=== PATIENT | female | born 1995 | race Caucasian/White ===

== ENCOUNTER 2019-04-12 14:27 | Outpatient (RCR) | payer OTHER, SELFPAY ==
[2019-04-13] MEDS: RHO(D) IMMUNE GLOBULIN 300 MCG SYRINGE IM (12:40)
== END 2019-07-11 23:59 | disposition home or self-care (01) ==
LOC: ANHLAB 14:27
PROVIDERS: PCP Family Medicine; Visit Provider Obstetrics & Gynecology Gynecology
DX: Z29.13 Encounter for prophylactic Rho(D) immune globulin (principal); O36.0930 Maternal care for other rhesus isoimmunization, third trimester, not applicable or unspecified; Z3A.28 28 weeks gestation of pregnancy
CPT/HCPCS: 36415; 36430; 90384; 96372; J2790

== ENCOUNTER 2019-06-24 10:03 | Observation (INO) | payer OTHER, SELFPAY ==
[2019-06-24] VITALS (11 sets, daily range): BP systolic 105–125; BP diastolic 60–88; PULSE 85–95; RESP 18; TEMP 36.8–37.2; BMI 34.2
--- NOTE | 2019-06-24 10:34 | OBADM ---
This patient, Meenakshi Adame, admitted to the OB room 116 at 1003 for observation for RUQ pain. Patient/family oriented to hospital policies and general routines including ID bracelet, bed and alarms, visiting hours, pain management, procedures, bathroom and other care routines, personal items, smoking policy, room service/diet, and visiting hours. Patient/Family are encouraged to report perceived risks to care and to ask questions if they do not understand what they are told or what they should do.
[2019-06-24 11:53] LABS: Basophils Percent Auto 0.5 % (0.2-1.2); Eosinophils Absolute Auto 0.2 K/mm3 (0-0.3); Eosinophils Percent Auto 1.8 % (0-4.4); Hematocrit 39.9 % (37.0-47.0); Hemoglobin 13.2 g/dL (12.0-15.0); Immature Granulocyte Absolute 0.06 K/mm3 (0.00-0.031); Immature Granulocyte Percent A 0.7 % (0-0.5); Lymphocytes Absolute Auto 1.47 K/mm3 (0.9-3.2); Mean Corpuscular HGB Conc 33.1 g/dl (32-36); Mean Corpuscular Volume 90.7 fl (80-100); Mean Platelet Volume 10.8 fl (7.4-10.4); Monocytes Absolute Auto 0.8 K/mm3 (0.1-0.6); Monocytes Percent Auto 9.7 % (2.6-8.5); Neutrophils Absolute Auto 6.1 K/mm3 (1.3-6.7); Neutrophils Percent Auto 70.3 % (45.5-73.1); Platelet Count Result 160 k/mm3 (150-375); White Blood Count 8.7 K/mm3 (4.5-10.0)
[2019-06-24 11:58] LABS: Add Urine Microscopic? YES; Appearance Urine Cloudy (Clear); Bacteria Urine 1+ /hpf; Bilirubin Urine Negative (Negative); Blood Urine Negative (Negative); Calcium Oxalate Crystals Urine Present /hpf; Color Urine Amber (Yellow); Glucose Urine UA Negative (Negative); Ketones Urine Negative (Negative); Leukocyte Esterase Ur Negative LEU/UL (Negative); Mucus Urine Heavy /lpf; Nitrate Urine Negative (Negative); Protein Urine 2+ mg/dL (Negative); Specific Grav Ur 1.028 (1.001-1.035); Squamous Epithelial Cell Urine Many /hpf (Few); Urobilinogen Urine Negative mg/dL (<2.0); WBC Urine 0-3 /hpf
[2019-06-24 12:06] LABS: Alanine Aminotransferase 12 U/L (4-35); Albumin Level 3.5 g/dL (3.5-5.1); Alkaline Phosphatase 149 U/L (38-126); Aspartate Amino Transferase 18 U/L (14-36); Bilirubin,Total 0.4 mg/dL (0.2-1.3); Blood Urea Nitrogen 9 mg/dL (7-17); Calcium 9.1 mg/dL (8.4-10.2); Carbon Dioxide 21 mmol/L (22-30); Chloride 102 mmol/L (98-107); Estimated CRCL calculation 147 ml/min; Estimated Glomerular Filt Rate > 60; Glucose 72 mg/dL (65-105); Sodium 133 mmol/L (137-145)
[2019-06-24 12:20] LABS: Creatinine Urine 304.9 mg/dL; Total Protein Urine Random 21 mg/dL
--- NOTE | 2019-07-01 10:19 | P.PNOB_ITS ---
OB - Triage/Final Diagnosis Visit Information Comments/Additional reasons for admission: right upper quadrant pain Evaluation Laboratory results: Laboratory Tests 06/24/19 06/24/19 06/24/19 11:42 11:42 11:42 WBC 8.7 RBC 4.40 Hgb 13.2 Hct 39.9 MCV 90.7 MCH 30.0 MCHC 33.1 RDW 13.0 Plt Count 160 MPV 10.8 H Immature Gran % (Auto) 0.7 H Neut % (Auto) 70.3 Lymph % (Auto) 17.0 L [place] % (Auto) 9.7 H Eos % (Auto) 1.8 Baso % (Auto) 0.5 Lymph # (Auto) 1.47 [place] # (Auto) 0.8 H Eos # (Auto) 0.2 Baso # (Auto) 0.0 Abs Immat Gran (auto) 0.06 H Absolute Neuts (auto) 6.1 Absolute Nucleated RBC 0.0 Nucleated RBC % 0.0 Sodium 133 L Potassium 4.0 Chloride 102 Carbon Dioxide 21 L BUN 9 Creatinine 0.50 L Estim Creat Clear Calc 147 Estimated GFR > 60 Glucose 72 Uric Acid 5.0 Calcium 9.1 Total Bilirubin 0.4 AST 18 ALT 12 Alkaline Phosphatase 149 H Total Protein 7.0 Albumin 3.5 Urine Color Urine Appearance Urine pH Ur Specific [place] Urine Protein Urine Glucose (UA) Urine Ketones Ur Blood (Man) Urine Nitrate Urine Bilirubin Urine Urobilinogen Leukocyte Esterase Rfl Urine RBC Urine WBC Ur Squamous Epith Cells Calcium Oxalate Crystal Urine Bacteria Urine Mucus U Random Total Protein 21 Urine Creatinine 304.9 06/24/19 11:42 WBC RBC Hgb Hct MCV MCH MCHC RDW Plt Count MPV Immature Gran % (Auto) Neut % (Auto) Lymph % (Auto) [place] % (Auto) Eos % (Auto) Baso % (Auto) Lymph # (Auto) [place] # (Auto) Eos # (Auto) Baso # (Auto) Abs Immat Gran (auto) Absolute Neuts (auto) Absolute Nucleated RBC Nucleated RBC % Sodium Potassium Chloride Carbon Dioxide BUN Creatinine Estim Creat Clear Calc Estimated GFR Glucose Uric Acid Calcium Total Bilirubin AST ALT Alkaline Phosphatase Total Protein Albumin Urine Color [place] Urine Appearance Cloudy H Urine pH 6.0 Ur Specific [place] 1.028 Urine Protein 2+ H Urine Glucose (UA) Negative Urine Ketones Negative Ur Blood (Man) Negative Urine Nitrate Negative Urine Bilirubin Negative Urine Urobilinogen Negative Leukocyte Esterase Rfl Negative Urine RBC 3-5 H Urine WBC 0-3 Ur Squamous Epith Cells Many H Calcium Oxalate Crystal Present Urine Bacteria 1+ H Urine Mucus Heavy H U Random Total Protein Urine Creatinine
== END 2019-06-24 13:56 | disposition home or self-care (01) ==
PROVIDERS: Admitting Provider Obstetrics & Gynecology Gynecology; PCP Family Medicine; Visit Provider Obstetrics & Gynecology Gynecology
DX: O26.893 Other specified pregnancy related conditions, third trimester (principal); R10.11 Right upper quadrant pain; Z3A.38 38 weeks gestation of pregnancy
CPT/HCPCS: 36415; 80053; 81001; 82570; 84156; 84550; 85025; G0378; G0379

== ENCOUNTER 2019-06-27 05:19 | Inpatient (IN) | payer OTHER, SELFPAY ==
[2019-06-27] VITALS (52 sets, daily range): BP systolic 103–146; BP diastolic 59–113; PULSE 70–125; RESP 12–20; TEMP 36.1–37.5; O2SAT 96–100; BMI 34.9
[2019-06-27] MEDS: LACTATED RINGERS 1,000 ML 125 ML IV CONT ×2 (06:19→07:04)
--- NOTE | 2019-06-27 06:23 | LDADM ---
This patient, Meenakshi Adame, was admitted to Labor/Delivery/Recovery 120 on 06/27/19 at 05:19. Plans for labor, pain management and were discussed with patient. Patient/family oriented to hospital policies and general routines including ID bracelet, bed and alarms, visiting hours, pain management, procedures, bathroom and other care routines, personal items, smoking policy, room service/diet and guest tray routines, security routines, and visiting hours. Patient/Family are encouraged to report perceived risks to care and to ask questions if they do not understand what they are told or what they should do. See OBIX for further documentation.
--- NOTE | 2019-06-27 06:50 | WPDANESEPPF ---
Anes - Initial Pre Proc Eval Procedure: Operation Date: 06/27/19 07:30 Proposed Procedures p Repeat Section - Leeanna Walton MD Date/Time: 06/27/19 06:50 Surgeon: Leeanna Walton MD Pre Op Diagnosis: section Patient Data Age: 23 Gender: F Height: 5 ft 2 in Weight: 86.5 kg Last Vital Signs Pulse 74 06/27/19 06:28 BP 124/78 06/27/19 06:28 Allergies Allergy/AdvReac Type Severity Reaction Status Date / Time No Known Allergies Allergy Unverified 10/05/16 18:34 Home Medications Medication Instructions Recorded Confirmed Type 1 tablet PO DAILY 06/04/19 06/24/19 History ergocalciferol (vitamin D2) 4,000 unit PO DAILY 06/04/19 06/24/19 History metformin 500 mg PO HS 06/04/19 06/24/19 History valacyclovir [Valtrex] 500 mg PO DAILY 06/24/19 06/24/19 History Patient hx anesthesia problems: other (panic attack after delivery) Family hx anesthesia problems: none PMFSH Past Medical History Medical History (Updated 06/27/19 @ 06:51 by Santos Merchant MD) HSV (herpes simplex virus) infection PCOS (polycystic ovarian syndrome) Family History Family History Father Blood clot in vein Son Epilepsy Social History Social History Smoking status: Former smoker Second hand tobacco smoke exposure: Yes Smoking end date: 06/01/15 Alcohol intake: current Substance use: current Gender identity (if verbalized by the patient): Female Spiritual care concerns: No Anes - Eval Final PreProcedure Day of Procedure 06/27/19 06:50 Patient weight: obese Heart: regular rate and rhythm Lungs: clear to auscultation Airway: Mallampati scale class II Neurological: alert and oriented Last oral intake: >/= 8 hours ASA classification: III Emergent: no Anesthetic plan: proceed Anesthesia type and monitoring: regional spinal and standard monitoring Informed Consent: The patient's anesthetic plan and its attendant risks and benefits were discussed with the patient/family/POA. Questions were solicited and answers provided to the satisfaction of the patient/family/POA.
--- NOTE | 2019-06-27 07:14 | PM.IMHP ---
H&P: HPI History of Present Illness Chief complaint: section Narrative: Meenakshi Adame is a 23 year old female A1 at 39 wks here for repeat csection. Uterus is known to be heart shaped. has been uncomplicated. labs A-; rubella immune; RPR-; Hep BSAg -; Hiv -; GBS - PMFSH Past Medical History Medical History (Updated 06/27/19 @ 07:17 by Leeanna Walton MD) HSV (herpes simplex virus) infection PCOS (polycystic ovarian syndrome) Surgical History Surgical History (Updated 06/27/19 @ 07:17 by Leeanna Walton MD) History of Family History Family History (Updated 06/27/19 @ 07:16 by Leeanna Walton MD) Father Blood clot in vein Son Epilepsy Sibling Club foot Social History Social History Smoking status: Former smoker Second hand tobacco smoke exposure: Yes Smoking end date: 06/01/15 Alcohol intake: current Substance use: current Gender identity (if verbalized by the patient): Female Spiritual care concerns: No Meds Home Medications and Allergies Home Medications Medication Instructions Recorded Confirmed Type 1 tablet PO DAILY 06/04/19 06/27/19 History ergocalciferol (vitamin D2) 4,000 unit PO DAILY 06/04/19 06/27/19 History metformin 500 mg PO HS 06/04/19 06/27/19 History valacyclovir [Valtrex] 500 mg PO DAILY 06/24/19 06/27/19 History Allergies Allergy/AdvReac Type Severity Reaction Status Date / Time No Known Allergies Allergy Unverified 10/05/16 18:34 Vital Signs Vital Signs - 24 hr 06/27/19 06:28 Pulse Rate 74 Blood Pressure 124/78 Exam Const: General: healthy appearing and alert Orientation/consciousness: patient oriented x3 Resp: Effort & Inspection: normal respiratory effort Auscultation: clear to auscultation bilaterally Cardio: Rate: regular rate Rhythm: regular rhythm GI: GI Palp: Yes Soft to palpation, No Tenderness to palpation present (GI) and No Palpable mass present Percussion: Yes other (fundus 37 cm) : External Female Exam: normal external appearance Speculum Exam - Vagina: normal appearance of the vagina and normal vaginal discharge Speculum Exam - Cervix: normal appearance of the cervix Bimanual exam- vagina & uterus: uterine size normal and consistency normal Bimanual Exam- Adnexa, other: normal adnexae and No adnexal tenderness Neuro: General: patient oriented x3 Assessment and Plan Assessment and plan (1) 39 weeks gestation of : Code(s): Z3A.39 - 39 weeks gestation of Status: Acute Assessment and Plan: plan repeat LTCS (2) History of : Code(s): Z98.891 - History of uterine scar from previous surgery Status: Acute
[2019-06-27] MEDS: ceFAZolin 2 GM/D5W 50 ML 2 GM/50 ML BAG IVPB (07:30)
--- NOTE | 2019-06-27 08:13 | PM.OP ---
Procedure Note - Brief Procedure Note - Brief Date of procedure: 06/27/19 Pre-op diagnosis: section IUP 39 wks Prior csection Post-op diagnosis: same Procedure performed: repeat LTCS Anesthesia: spinal Surgeon: Leeanna Walton MD Estimated blood loss (mL): 210 Drains: Yes (van) Packing: No Pathology: none sent Complications: No immediate complications Condition: stable Disposition: PACU Findings: female infant with 9/9 Apgars weighing 6#1oz; normal appearing tubes and ovaries; uterus heart shaped
--- NOTE | 2019-06-27 08:15 | PM.OBDSVD ---
DS: Diagnosis Admitting Diagnosis Admitting Diagnosis: 39 weeks gestation of Discharge Diagnosis (1) History of : Code(s): Z98.891 - History of uterine scar from previous surgery Status: Acute (2) 39 weeks gestation of : Code(s): Z3A.39 - 39 weeks gestation of Status: Acute (3) S/P : Onset Date: ~06/27/19 Code(s): Z98.891 - History of uterine scar from previous surgery Status: Acute OB - DS: Summary OB Procedures : NST and Ultrasound OB Procedures Intrapartum: OB Procedures: : None Peripartum Data Procedures: Procedures Operation Date: 06/27/19 07:30 <No data on this case meets the specified criteria> Time Spent with Patient Time attestation: Total time spent providing and/or coordinating discharge services: Discharge Plan Discharge Attending physician on discharge: Leeanna Walton Discharging Clinician: Leeanna Walton Anticipated Discharge Date/Time: 06/30/19 08:16 Patient Disposition: Home, Self-Care Activity: may drive after 2 weeks and pelvic rest Diet: regular Wound Care Instructions: incision open to air Patient Instructions: Antibiotic Form Stand Alone Forms: General Discharge Information Follow-up/Referrals: Leeanna Walton MD [Physician] - Discharge Medications: New hydrocodone-acetaminophen 5-325 mg Tablet 1 tab PO Q3H PRN (Reason: Moderate Pain (4-6)) Qty: 0 RF: 0 Continued metformin 500 mg Tablet 500 mg PO HS RF: 0 ergocalciferol (vitamin D2) 4,000 unit PO DAILY RF: 0 Discontinued 28-800 mg-mcg Tablet 1 tablet PO DAILY RF: 0 valacyclovir [Valtrex] 500 mg Tablet 500 mg PO DAILY RF: 0 Date of admission: 06/27/19 05:19 Primary Care Provider: UNKNOWN,DOCTOR Admitting Provider: Leeanna Walton Attending physician on admission: Leeanna Walton Condition: Stable Health Concerns: Plan condoms until Mirena placed
[2019-06-27] MEDS: KETOROLAC 30 MG/ML VIAL (*BKC) IV PUSH (09:43)
--- NOTE | 2019-06-27 10:33 | PC.NURSE ---
Patient transferred to post room #283 per stretcher from labor and delivery. Support person present. Oriented to unit, room, information board, rooming in, admission packet and security measures. Patient verbalizes understanding.
--- NOTE | 2019-06-27 11:20 | PC.NURSE ---
Consulted with patient, mother reports infant eagerly fed for first feeding. Reviewed feeding cues, frequencies, duration of feedings, feeding elimination flow sheet, and signs of adequate intake. Demonstrated stimulation techniques to wake infant for feeding. Assisted with infant to breast. Reviewed positioning/alignment in cross cradle, holding breast in U hold and guided asymmetrical latch on. Discussed rational for each. was sleepy and made to effort to latch. Advised to skin to skin and attempt again in 30-45 min.
--- NOTE | 2019-06-27 11:49 | OP_ITS ---
DATE OF PROCEDURE: 06/27/2019 PREOPERATIVE DIAGNOSES: Intrauterine at 39 weeks, previous section. POSTOPERATIVE DIAGNOSES: Intrauterine at 39 weeks, previous section. PROCEDURE: Repeat low-transverse section. ANESTHESIA: Spinal. FINDINGS: 6-pound 1-ounce female, Apgars of 9 at 1 minute, 9 at 5 minutes. Normal-appearing tubes and ovaries. Uterus is heart shaped. ESTIMATED BLOOD LOSS: 210 mL. PATHOLOGY: None. DESCRIPTION OF PROCEDURE: The patient was taken to the operating room, placed under anesthesia in the dorsal supine position with a leftward tilt. Once anesthesia was deemed adequate, she was prepped and draped in the usual sterile fashion. A Pfannenstiel skin incision was made with a scalpel and carried down to the underlying layer of fascia. Fascia was nicked in the midline and extended laterally using Wylie scissors. [facility] was used to tent the fascia, which was then dissected off using sharp dissection. The rectus muscles were in the midline. The peritoneum was tented and entered with Metzenbaums. The incision was extended with blunt traction. The bladder blade was placed. The vesicouterine peritoneum was tented, entered with Metzenbaums, extended laterally. The bladder flap was created digitally. The bladder blade was replaced. The lower uterine segment was incised in a transverse fashion with a scalpel and extended laterally using blunt traction. The infant's head was brought up into the incision and delivered while the pharmacy technician assistant applied fundal pressure. The remainder of the was delivered. The cord was clamped and cut and the handed to the waiting OB nurse. The placenta was removed manually due to cord avulsion. The uterus was cleared of all clots and debris and exteriorized. The uterine incision was closed using 0 Monocryl in a running locked fashion. Same suture was used to imbricate. Good hemostasis was noted. The cul-de-sac was irrigated. The uterus was returned to the abdomen. The gutters were irrigated. The incision was again inspected and noted to be hemostatic. The fascia was closed using 0 Vicryl in a running fashion. Subcutaneous tissues were irrigated and made hemostatic using Bovie cautery. Skin was closed using 4-0 Vicryl in a subcuticular fashion. Dermaflex was placed over the incision. Sponge, instrument, needle counts were correct per the OR staff. The patient was given Ancef prior to incision. D I MT: Leydi
--- NOTE | 2019-06-27 12:10 | PC.NURSE ---
Reviewed feeding cues, frequencies, duration of feedings, feeding elimination flow sheet, and signs of adequate intake. Demonstrated stimulation techniques to wake infant for feeding. Assisted with infant to breast. Reviewed positioning/alignment in cross cradle, holding breast in U hold and guided asymmetrical latch on. Discussed rational for each. was sleepy and made to effort to latch. Advised to skin to skin and attempt again in 30-45 min.
--- NOTE | 2019-06-27 13:35 | PC.NURSE ---
Assisted with to breast. Reviewed positioning/alignment, holding breast and asymmetrical latch on. was able to latch correctly. Infant nursed eagerly, with steady draws and frequent swallowing noted. Reviewed signs of a correct latch, effective nursing and suck swallow ratio. Infant was able to maintain latch without discomfort to mother. Nipple care reviewed. Instructed mother to call out for RN assistance if she is unable to latch for feeding or she has discomfort with nursing. Instructed feeding should be initiated three hours from start of last feeding or if feeding cues are noted before. Mother voiced understanding of information shared.
[2019-06-27] MEDS: DEXTROSE 5%/0.45% SOD CHL 1,000 ML 125 ML IV CONT (13:40)
[2019-06-27] MEDS: IBUPROFEN 600 MG TABLET PO ×2 (17:20→23:11)
[2019-06-27] MEDS: DOCUSATE SODIUM 100 MG CAPSULE PO (17:21)
[2019-06-27] MEDS: LANOLIN (LANSINOH) 7.5 GM CREAM 1 APPLIC TOPICAL (19:30)
[2019-06-28 04:00] VITALS: BP 123/74; PULSE 93; RESP 18; TEMP 36.8; O2SAT 99
[2019-06-28 04:56] LABS: Basophils Percent Auto 0.4 % (0.2-1.2); Eosinophils Absolute Auto 0.2 K/mm3 (0-0.3); Eosinophils Percent Auto 1.8 % (0-4.4); Hematocrit 37.6 % (37.0-47.0); Hemoglobin 12.5 g/dL (12.0-15.0); Immature Granulocyte Absolute 0.08 K/mm3 (0.00-0.031); Immature Granulocyte Percent A 0.7 % (0-0.5); Immature Platelet Fraction Pct 4.5 % (0.9-11.2); Lymphocytes Absolute Auto 1.89 K/mm3 (0.9-3.2); Lymphocytes Percent Auto 17.3 % (18.3-44.2); Mean Corpuscular HGB Conc 33.2 g/dl (32-36); Mean Corpuscular Hemoglobin 30.2 pg (26-34); Mean Corpuscular Volume 90.8 fl (80-100); Mean Platelet Volume 10.6 fl (7.4-10.4); Monocytes Absolute Auto 1.1 K/mm3 (0.1-0.6); Monocytes Percent Auto 10.3 % (2.6-8.5); Neutrophils Absolute Auto 7.6 K/mm3 (1.3-6.7); Neutrophils Percent Auto 69.5 % (45.5-73.1); Platelet Count Result 145 k/mm3 (150-375); Red Blood Count 4.14 M/mm3 (4.2-5.4); White Blood Count 10.9 K/mm3 (4.5-10.0)
[2019-06-28] MEDS: IBUPROFEN 600 MG TABLET PO ×4 (05:18→23:13)
[2019-06-28 07:50] VITALS: BP 111/69; PULSE 89; RESP 18; TEMP 36.9; O2SAT 100
--- NOTE | 2019-06-28 07:53 | PM.OBPNVD ---
OB - PN: Subj Subjective Date/time seen: 06/28/19 07:53 Patient comments: no complaints and pain well controlled baby status: doing well OB - PN: Obj Data Labs CBC & Chem 7: 06/28/19 04:25 Labs: Laboratory Results - last 24 hr 06/28/19 04:25 WBC 10.9 H RBC 4.14 L Hgb 12.5 Hct 37.6 MCV 90.8 MCH 30.2 MCHC 33.2 RDW 13.0 Plt Count 145 L MPV 10.6 H Immature Gran % (Auto) 0.7 H Neut % (Auto) 69.5 Lymph % (Auto) 17.3 L [place] % (Auto) 10.3 H Eos % (Auto) 1.8 Baso % (Auto) 0.4 Lymph # (Auto) 1.89 [place] # (Auto) 1.1 H Eos # (Auto) 0.2 Baso # (Auto) 0.0 Abs Immat Gran (auto) 0.08 H Absolute Neuts (auto) 7.6 H Absolute Nucleated RBC 0.0 Nucleated RBC % 0.0 % Immature Plt Fraction 4.5 OB - PN A/P Plan day: 1 Plan: routine care Time Spent With Patient Time: Total time spent is greater than 50% in coordination of care (as documented) at patient's floor/unit and/or counseling patient: Time with patient: less than 15 minutes Exam Narrative: Exam Narrative: inc c/d/i : Bimanual exam- vagina & uterus: other (Uterus firm, nt @U)
[2019-06-28] MEDS: DOCUSATE SODIUM 100 MG CAPSULE PO ×2 (07:54→17:12)
--- NOTE | 2019-06-28 09:31 | WPDANLDPN2 ---
Anes-Prog Note L&D Date/Time: 06/28/19 09:31 Comfortable throughout: section Neuraxial method: spinal Epidural/Spinal procedure site: clean & non-tender Neuro status: Neuro function grossly intact. Cardiovascular status: normal Respiratory status: normal Airway patency: baseline Mental status: baseline Post-Op hydration status: normal Vital Signs: Last Vital Signs Temp 36.9 C 06/28/19 07:50 Pulse 89 06/28/19 07:50 Resp 18 06/28/19 07:50 BP 111/69 06/28/19 07:50 Pulse Ox 100 06/28/19 07:50 I/O: Intake & Output 06/27/19 06/28/19 06/28/19 23:59 07:59 15:59 Intake Total 2360 300 Output Total 2250 550 Balance 110 -250 Post-procedural complaints: none Patient feedback: Patient satisfied with anesthetic care.
--- NOTE | 2019-06-28 09:32 | WPDANLDNPN2 ---
Anes-Prog Note L&D-Neuraxial Date/Time: 06/28/19 09:32 Neuraxial medications: intrathecal PF morphine Opiod-related complaints: none Patient feedback: Patient satisfied with post-operative pain management.
[2019-06-28 11:50] VITALS: BP 96/63; PULSE 80
[2019-06-28] MEDS: RHO(D) IMMUNE GLOBULIN 300 MCG SYRINGE IM (13:43)
[2019-06-28 20:15] VITALS: PULSE 95; RESP 18; TEMP 36.9; O2SAT 100; O2SAT 97
[2019-06-29] MEDS: IBUPROFEN 600 MG TABLET PO ×3 (05:50→17:37)
--- NOTE | 2019-06-29 07:00 | PC.NURSE ---
PT introductions made and plan of care discussed per post op c section, pain management, breast feeding, daily care activities. PT verbalized understanding of such care.
[2019-06-29] MEDS: DOCUSATE SODIUM 100 MG CAPSULE PO ×2 (07:10→17:37)
[2019-06-29] MEDS: MULTIVIT/MIN/PREN/FOL AC/IRON TABLET 1 TAB PO (07:10)
[2019-06-29] MEDS: SIMETHICONE 80 MG TAB.CHEW PO ×4 (07:10→17:37)
[2019-06-29 07:59] VITALS: BP 107/69; PULSE 85; RESP 18; TEMP 36.5; O2SAT 98
[2019-06-29 10:15] VITALS: PULSE 85; RESP 18; O2SAT 98
--- NOTE | 2019-06-29 10:48 | PC.NURSE ---
R On 06/29/19, the student, [ SN Arcadio], provided care and completed [facility] [employer] documentation on this patient. I have reviewed the student's documentation and agree with the findings.
--- NOTE | 2019-06-29 11:41 | PM.OBPNVD ---
OB - PN: Subj Subjective Date/time seen: 06/29/19 11:41 Patient comments: no complaints, pain well controlled, tolerating diet and flatus present [place] baby status: doing well and nursing well feeding status: exclusively breast feeding OB - PN: Obj Data Labs CBC & Chem 7: 06/28/19 04:25 Labs: Laboratory Results - last 24 hr 06/28/19 04:25 Blood Type A Negative Antibody Screen Negative Screen Negative Baby's Blood Type A pos Baby's AGUILAR Negative Doses of RhIg Required 1 OB - PN A/P Plan day: 2 Plan: routine care Time Spent With Patient Time: Total time spent is greater than 50% in coordination of care (as documented) at patient's floor/unit and/or counseling patient: Time with patient: less than 15 minutes Review of Systems Constitutional: Constitutional: Reports no additional constitutional complaints Cardiovascular: Cardiovascular: Reports no additional cardiovascular complaints Respiratory: Respiratory: Reports no additional respiratory complaints Gastrointestinal: Gastrointestinal: Reports no additional gastrointestinal complaints Genitourinary: Genitourinary: Reports no additional female genitourinary complaints Exam Const: General: comfortable, no acute distress, alert and awake Resp: Effort & Inspection: normal respiratory effort Auscultation: clear to auscultation bilaterally Cardio: Rate: regular rate GI: Auscultation: normal bowel sounds Other: Fundus firm below umbilicus Incision: C/D/I
[2019-06-29 20:10] VITALS: BP 118/72; PULSE 83; RESP 16; TEMP 36.7
[2019-06-30] MEDS: IBUPROFEN 600 MG TABLET PO ×3 (00:15→12:47)
[2019-06-30] MEDS: DOCUSATE SODIUM 100 MG CAPSULE PO (06:39)
[2019-06-30] MEDS: MULTIVIT/MIN/PREN/FOL AC/IRON TABLET 1 TAB PO (06:39)
[2019-06-30 07:30] VITALS: BP 104/64; PULSE 74; RESP 18; TEMP 36.8; O2SAT 99
--- NOTE | 2019-06-30 07:34 | PM.OBPNVD ---
OB - PN: Subj Subjective Date/time seen: 06/30/19 07:34 Patient comments: no complaints OB - PN: Obj Data Labs CBC & Chem 7: 06/28/19 04:25 OB - PN A/P Plan day: 3 Plan: routine care and discharge home Comments: Doing well. Plans Mirena for bc Time Spent With Patient Time: Total time spent is greater than 50% in coordination of care (as documented) at patient's floor/unit and/or counseling patient: Time with patient: less than 15 minutes Exam Narrative: Exam Narrative: inc c/d/i : Bimanual exam- vagina & uterus: other (Uterus firm, nt @U)
--- NOTE | 2019-06-30 12:05 | PC.NURSE ---
Mother is able to independently latch infant with appropriate positioning/alignment. She denies any nipple discomfort, is feeding as required and waking to feed if needed. has had 9 effective feedings in the past 24 hours, and is currently meeting outcomes for output, jaundice and feeding frequencies. Mother states she feels confident to continue effective at home. Mother will syringe feed infant EBM until seen by follow up RN for weight loss. ICP ordered to teach mother to syringe feeding. Teaching done as ordered. Mother demonstrated ability to syringe feed. Mother uses a pacifier and advised to pace feed by nipple. Reviewed transition to breast milk, signs of adequate intake, and engorgement/relief. Instructed to call ICP if intake/output less than required. Reviewed regular medications mother is taking. Information provided per [facility]. Reviewed community resources on the [facility] website and in the Mom/Baby guide. Information on outpatient services provided. Mother has no further questions at this time.
[2019-07-01 11:26] VITALS: BP 121/84; PULSE 90; RESP 18; TEMP 36.8
== END 2019-06-30 13:09 | disposition home or self-care (01) | DRG 787 ==
LOC: ANHLDR 05:23 → ANHOB2 10:35
PROVIDERS: Admitting Provider Obstetrics & Gynecology Gynecology; Visit Provider Obstetrics & Gynecology Gynecology
PROC: 10D00Z1 Extraction of Products of Conception, Low, Open Approach (ICD-10-PCS; CPT 59514; principal; 2019-06-27 07:30)
DX: O34.211 Maternal care for low transverse scar from previous cesarean delivery (principal); O98.52 Other viral diseases complicating childbirth; O36.0930 Maternal care for other rhesus isoimmunization, third trimester, not applicable or unspecified; Z37.0 Single live birth; Z3A.39 39 weeks gestation of pregnancy; O99.284 Endocrine, nutritional and metabolic diseases complicating childbirth; E28.2 Polycystic ovarian syndrome; B00.9 Herpesviral infection, unspecified; O99.214 Obesity complicating childbirth; E66.9 Obesity, unspecified
CPT/HCPCS: 36415; 85025; 85055; 86850; 90384; A9270; J0131; J0690; J1200; J1885; J2274; J2370; J2405; J2590; J2790; J7120

== ENCOUNTER 2019-08-15 12:57 | Outpatient (CLI) | payer OTHER, SELFPAY ==
[2019-08-15 13:33] LABS: Alanine Aminotransferase 25 U/L (4-35); Albumin Level 4.4 g/dL (3.5-5.1); Alkaline Phosphatase 72 U/L (38-126); Amylase 62 U/L (30-110); Aspartate Amino Transferase 26 U/L (14-36); Bilirubin,Total 0.8 mg/dL (0.2-1.3); Lipase 76 U/L (23-300)
== END 2019-08-15 12:58 | disposition home or self-care (01) ==
LOC: ANHSURGERY 12:59
PROVIDERS: PCP Obstetrics & Gynecology Gynecology; Visit Provider Surgery
DX: K82.4 Cholesterolosis of gallbladder (principal)
CPT/HCPCS: 36415; 80076; 82150; 83690

== ENCOUNTER 2019-09-28 00:24 | Day surgery (SDC) | payer OTHER, SELFPAY ==
[2019-08-09 14:05] VITALS: BMI 32.0
[2019-09-26 15:51] VITALS: BMI 33.0
--- NOTE | 2019-09-27 13:38 | PM.SD ---
Same Day Admit/Disch: HPI History of Present Illness Chief complaint: Chronic Cholecystitis with Stones Narrative: Meenakshi Adame is a 24 year old female Who has been having postprandial right upper quadrant abdominal pain. This is worse with fried foods. It often wakes her at night. It started towards the end of her which she had a on June 27, 2019. She has continued to have pain. She had an ultrasound of her gallbladder on June 25 which showed a 6 mm gallbladder polyp. She was seen in the office and felt to have chronic cholecystitis. She is taken to surgery now for laparoscopic cholecystectomy. She has a strong family history of gallbladder disease in that both her parents had chronic cholecystitis and cholecystectomy. FORMERLY [facility] Past Medical History Medical History (Updated 09/27/19 @ 17:25 by Eric Pope CRNA) Chronic cholecystitis without calculus Gall bladder disease Gallbladder polyp HSV (herpes simplex virus) infection Migraines Panic attacks PCOS (polycystic ovarian syndrome) Post depression Surgical History Surgical History History of x2 Family History Family History Father Blood clot in vein Diabetes mellitus Hypertension Son Epilepsy Sibling Club foot Mother Low blood pressure Unknown Hypertension Diabetes mellitus Cancer Social History Social History Smoking status: Former smoker Second hand tobacco smoke exposure: Yes Smoking end date: 06/01/15 Alcohol intake: current Substance use: current Gender identity (if verbalized by the patient): Female Spiritual care concerns: No Same Day Admit/Disch: Med Pre-admit Medications Home Medications Medication Instructions Recorded Confirmed Type metformin 500 mg PO HS 06/04/19 09/28/19 History escitalopram oxalate 10 mg tablet 10 mg PO DAILY 08/02/19 09/28/19 History ergocalciferol (vitamin D2) 2,000 unit PO HS 08/09/19 09/28/19 History hydrocodone-acetaminophen 1 - 2 tablet PO Q6H PRN #7 tablet 09/28/19 Rx ketorolac 10 mg PO Q6H 4 Days #16 tablet 09/28/19 Rx Exam Const: General: comfortable, no acute distress, alert and awake HENMT: Head: normocephalic and atraumatic Mouth: Yes Normal oral and palatal mucosa present Eyes: Conjunctivae: conjunctivae normal Pupils: Equal, round and reactive pupils present EOM: EOMs intact bilaterally Neck: Neck: normal visual inspection, no lymphadenopathy and nontender Resp: Effort & Inspection: normal respiratory effort Auscultation: clear to auscultation bilaterally Cardio: Rate: regular rate Rhythm: regular rhythm Heart sounds: no gallops, no murmurs and no rubs GI: Inspection: non-distended and scar ( Pfannenstiel scar from ) GI Palp: Yes Soft to palpation, Yes Tenderness to palpation present (GI) ( right upper quadrant), No Guarding due to palpation present (GI), No Hepatomegaly present, No Splenomegaly present and No Rebound tenderness present Auscultation: normal bowel sounds Skin: Lesions: no lesions Rashes: no rashes Neuro: General: no focal motor deficits and CN's II-XI intact bilaterally Cranial nerves: Yes Equal, round and reactive pupils present, Yes Bilaterally intact EOM present, Yes facial symmetry and Yes Midline tongue present Speech: normal speech Motor exam (neuro): 5/5 motor strength present throughout and Motor abnormalities not present Extrem: General: no clubbing, cyanosis or edema and edema Psych: Affect: normal affect Thought process: Normal thought process present Insight: Good insight present (Psych) DS: Summary Time Spent with Patient Time attestation: Total time spent providing and/or coordinating discharge services: DS: Diagnosis Admitting Diagnosis Admitting Diagnosis: chronic cholecystitis Discharge Diagnosis (1)
--- NOTE | 2019-09-27 17:23 | WPDANESEPP ---
Anes - Eval Pre Procedure Procedure: Operation Date: 09/28/19 07:30 Proposed Procedures p Laparoscopic Cholecystectomy - Kamari Brower MD Date/Time: 09/27/19 17:23 Pre Op Diagnosis: Chronic Cholecystitis with Stones Patient Data Age: 24 Gender: F Height: 5 ft 1 in Weight: 79.38 kg Allergies Allergy/AdvReac Type Severity Reaction Status Date / Time No Known Allergies Allergy Verified 09/26/19 15:44 Home Medications Medication Instructions Recorded Confirmed Type metformin 500 mg PO HS 06/04/19 09/26/19 History escitalopram oxalate 10 mg tablet 10 mg PO DAILY 08/02/19 09/26/19 History ergocalciferol (vitamin D2) 2,000 unit PO HS 08/09/19 09/26/19 History Patient hx anesthesia problems: none Family hx anesthesia problems: none PMFSH Past Medical History Medical History (Updated 09/27/19 @ 17:25 by Eric Pope CRNA) Chronic cholecystitis without calculus Gall bladder disease Gallbladder polyp HSV (herpes simplex virus) infection Migraines Panic attacks PCOS (polycystic ovarian syndrome) Post depression Surgical History Surgical History History of x2 Family History Family History Father Blood clot in vein Diabetes mellitus Hypertension Son Epilepsy Sibling Club foot Mother Low blood pressure Unknown Hypertension Diabetes mellitus Cancer Social History Social History Smoking status: Former smoker Second hand tobacco smoke exposure: Yes Smoking end date: 06/01/15 Alcohol intake: current Substance use: current Gender identity (if verbalized by the patient): Female Spiritual care concerns: No Exam Day of Procedure 09/27/19 17:23
[2019-09-28] VITALS (8 sets, daily range): BP systolic 111–148; BP diastolic 68–112; PULSE 71–106; RESP 12–20; TEMP 36.3–36.4; O2SAT 94–100
[2019-09-28] MEDS: LACTATED RINGERS 1,000 ML 30 ML IV CONT ×2 (06:40→08:45)
--- NOTE | 2019-09-28 07:02 | P.PNAN_ITS ---
Anes - Eval Final PreProcedure Day of Procedure 09/28/19 07:02 Patient weight: obese Heart: regular rate and rhythm Lungs: clear to auscultation Airway: Mallampati scale class II Neurological: alert and oriented Last oral intake: >/= 8 hours ASA classification: III Emergent: no Anesthetic plan: proceed Anesthesia type and monitoring: general ETT and standard monitoring Informed Consent: The patient's anesthetic plan and its attendant risks and be nefits were discussed with the patient/family/POA. Questions were solicited and answers provided to the satisfaction of the patient/family/POA.
[2019-09-28 07:05] LABS: Alanine Aminotransferase 15 U/L (4-35); Albumin Level 4.1 g/dL (3.5-5.1); Alkaline Phosphatase 65 U/L (38-126); Amylase 42 U/L (30-110); Aspartate Amino Transferase 21 U/L (14-36); Bilirubin,Total 0.5 mg/dL (0.2-1.3); Blood Urea Nitrogen 16 mg/dL (7-17); Calcium 9.1 mg/dL (8.4-10.2); Carbon Dioxide 26 mmol/L (22-30); Chloride 105 mmol/L (98-107); Estimated CRCL calculation 106 ml/min; Estimated Glomerular Filt Rate > 60; Glucose 97 mg/dL (65-105); Lipase 36 U/L (23-300); Potassium 3.9 mmol/L (3.4-5.0); Sodium 136 mmol/L (137-145)
--- NOTE | 2019-09-28 07:11 | WPDHPUPDATE1 ---
History and Physical Update Update Date/Time: 09/28/19 07:11 History and Physical has been reviewed, including an updated exam of the patient. There are NO changes in the patient's condition. Risks, benefits, and alternatives have been discussed and questions answered. Patient agrees to proceed with procedure.
[2019-09-28] MEDS: ceFAZolin 2 GM/D5W 50 ML 2 GM/50 ML BAG IVPB (07:29)
[2019-09-28] MEDS: BUPIVACAINE/EPINEPHRINE 0.5% 30 ML VIAL 21 ML INFILTRATE (07:29)
--- NOTE | 2019-09-28 08:12 | SUR.OPER ---
EBL:10cc
--- NOTE | 2019-09-28 08:30 | P.OP_ITS ---
Procedure Note - Detailed Date of procedure: 09/28/19 Pre-op diagnosis: Chronic Cholecystitis with Stones Chronic cholecystitis, gallbladder polyp Post-op diagnosis: same Procedure performed: Laparoscopic cholecystectomy Description of procedure: The patient was taken to surgery and induced into general anesthesia. The abdomen was prepped and draped. Trocars were placed in the usual fashion using 0.5% Marcaine with epinephrine and applied Medical optical trocars. A 5 millimeter camera was used. The gallbladder was decompressed with a laparoscopic aspirator. The cholecystotomy was closed with a Vicryl endo-loop. The gallbladder was retracted anterosuperiorly. Traction was placed on the infundibulum. The cystic duct and cystic artery were dissected out very clearly. The gallbladder was dissected off the liver at its lower 3rd. Critical view was achieved. We securely clipped and divided the cystic duct and cystic artery. The gallbladder was then further retracted so that the peritoneal attachments to the liver could be divided. Once the gallbladder was freed entirely, it was placed in an Endo-Catch bag and retrieved through the 10 11 epigastric trocar site. The epigastric trocar was then replaced. We reviewed the right upper quadrant. It was irrigated and suctioned. All looked good with no evidence of bleeding or bile leakage. We evacuated CO2 and removed the trocar sleeves. Skin wounds were closed with subcuticular 4 O Monocryl skin suture. The wounds were dressed with Exofin surgical adhesive. Patient was awakened and taken to recovery in good condition. Sponge and needle counts were correct x2. Anesthesia: GETA and local (0.5% Marcaine with epinephrine) Surgeon: Kamari Brower MD Gas Substation Operator: Juan Ramon TINEO Estimated blood loss (mL): 5 Drains: No Packing: No Pathology: yes (Gallbladder) Complications: None Condition: stable Disposition: PACU Findings: Minimal inflammation, no gallstones noted. No biliary ductal dilatation, no liver abnormalities.
== END 2019-09-28 10:32 | disposition home or self-care (01) ==
PROVIDERS: Referring Provider Obstetrics & Gynecology Gynecology; Visit Provider Surgery
PROC: 0FT44ZZ Resection of Gallbladder, Percutaneous Endoscopic Approach (ICD-10-PCS; CPT 47562; principal; 2019-09-28 07:30)
DX: K81.1 Chronic cholecystitis (principal); E28.2 Polycystic ovarian syndrome; B00.9 Herpesviral infection, unspecified; Z87.891 Personal history of nicotine dependence
CPT/HCPCS: 47562; 36415; 80053; 82150; 82248; 83690; 86850; 86900; 86901; 88304; A9270; C1713; J0131; J0690; J1100; J1170; J2250; J2405; J2704; J3010; J7120

== ENCOUNTER 2019-12-05 13:01 | Outpatient (CLI) | payer OTHER, SELFPAY ==
--- NOTE | ~2019-12-05 | US_ITS ---
EXAMINATION: US pelvic complete w TV DATE: 12/05/2019 14:04 INDICATION: Missing IUD strings TECHNIQUE: Multiple transabdominal and endovaginal sonographic images of the pelvis were obtained. COMPARISON: None. FINDINGS: The uterus measures 9.0 x 6.0 x 3.4 cm. The endometrial complex measures 6 mm. An IUD is pr esent in the uterus in expected position. The right ovary is not visualized however no right adnexal abnormality is seen. The left ovary measures 2.6 x 1.6 x 2.1 cm. There is normal vascular flow in the left ovary. There is no free fluid in the pelvis. IMPRESSION: 1. IUD in expected position. Reviewed, dictated and finalized at location A.
== END 2019-12-05 13:02 | disposition home or self-care (01) ==
PROVIDERS: Visit Provider Obstetrics & Gynecology Gynecology
DX: Z30.431 Encounter for routine checking of intrauterine contraceptive device (principal)
CPT/HCPCS: 76830; 76856

== ENCOUNTER 2020-05-13 14:58 | Emergency (ER) | payer OTHER, SELFPAY ==
--- NOTE | ~2020-05-13 | CT_ITS ---
EXAMINATION: CT brain wo con INDICATION: Head injury COMPARISON: 01/15/2015 TECHNIQUE: Standard unenhanced head CT. The dose-length product (DLP) was 605.33 mGy-cm. The mA was a djusted according to patient size. Iterative reconstruction technique was employed. FINDINGS: There is right periorbital soft tissue swelling. There is no intracranial hemorrhage, acute infarction, or abnormal mass lesion. The ventricles are normal. There is no abnormal mass effect or midline shift. The valle-white matter differentiation is normal. The basal cisterns are patent. The or bits are normal. The right frontal sinus is hypoplastic. The paranasal sinuses, mastoids and calvariu m are otherwise normal. IMPRESSION: 1. Right periorbital soft tissue swelling without acute intracranial abnormality. Reviewed, dictated and finalized at location A. NTRY UNIT LEADER IMPRESSION: 1. Right periorbital soft tissue swelling without acute intracranial abnormalit y.
--- NOTE | ~2020-05-13 | CT_ITS ---
EXAMINATION: CT facial & cervical spine wo DATE: 05/13/2020 16:47 INDICATION: Head injury and neck pain TECHNIQUE: Computed tomography (CT) of the maxillofacial region and cervical spine was performed with out intravenous contrast. The dose-length product (DLP) was 445.24 mGy-cm. Automated exposure control and iterative reconstruction technique were employed. COMPARISON: None FINDINGS: MAXILLOFACIAL CT: There is right periorbital soft tissue swelling. No facial bone fracture is identified. The right fro ntal sinus is hypoplastic. There is a tiny polyp or mucous retention cyst in the right maxillary sinu s. The paranasal sinuses are otherwise unremarkable. The mastoid air cells are clear. The orbits and globes are normal. CERVICAL SPINE CT: There is no fracture, dislocation, or subluxation. The vertebral body heights, alignment, and interve rtebral disc spaces are normal. The paravertebral soft tissues are unremarkable. The odontoid is inta ct. IMPRESSION: 1. Right periorbital soft tissue swelling without evidence of facial bone fracture. 2. Normal cervical spine. Reviewed, dictated and finalized at location A. MOTIVE COLLISION ESTIMATOR IMPRESSION: 1. Right periorbital soft tissue swelling without evidence of facial bone fract ure. 2. Normal cervical spine.
[2020-05-13 14:59] VITALS: BP 143/83; PULSE 95; RESP 20; TEMP 36.2; O2SAT 100
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
[2020-05-13] MEDS: ACETAMINOPHEN 500 MG TABLET 1000 MG PO (15:51)
[2020-05-13 17:36] VITALS: BP 128/78; PULSE 72; RESP 16; O2SAT 100
== END 2020-05-13 17:36 | disposition home or self-care (01) ==
PROVIDERS: Emergency Provider Emergency Medicine
DX: S00.11XA Contusion of right eyelid and periocular area, initial encounter (principal); Z79.84 Long term (current) use of oral hypoglycemic drugs; E28.2 Polycystic ovarian syndrome; Z87.891 Personal history of nicotine dependence; W01.0XXA Fall on same level from slipping, tripping and stumbling without subsequent striking against object, initial encounter
CPT/HCPCS: 70450; 70486; 72125; 81025; 99284; A9270

== ENCOUNTER 2023-08-12 14:34 | Emergency (ER) | payer BC, SELFPAY ==
--- NOTE | ~2023-08-12 | XR_ITS ---
EXAMINATION: XR chest 2V DATE: 08/12/2023 15:04 INDICATION: Chest pain. TECHNIQUE: Frontal and lateral views of the chest were obtained. COMPARISON: Chest 2 views 12/08/2016 FINDINGS: There is no pneumonia, pleural effusion, or pneumothorax. The heart size is normal. IMPRESSION: 1. No acute cardiopulmonary disease. Reviewed, dictated and finalized at location A.
--- NOTE | 2023-08-12 14:36 | ECG_ITS ---
Measurements Intervals [place] Rate: 80 P: 35 TN: 156 QRS: 47 QRSD: 90 T: 54 QT: 363 QTc: 420 Interpretive Statements SINUS RHYTHM WITH SINUS ARRHYTHMIA BORDERLINE T WAVE ABNORMALITY- ANTERIOR LEADS BASELINE ARTIFACT- III, AVR, AVL, AVF BORDERLINE ECG NO PREVIOUS ECG AVAILABLE FOR COMPARISON Electronically Signed On 08-12-2023 15:29:46 CDT by Hoang Messer D.O.
[2023-08-12 14:41] VITALS: BP 130/93; PULSE 83; RESP 17; TEMP 36.4; O2SAT 99
[2023-08-12 14:44] VITALS: BP 135/89; PULSE 87; RESP 16; TEMP 36.7; O2SAT 98
[2023-08-12 15:03] VITALS: BP 120/73; PULSE 89; RESP 14; TEMP 37; O2SAT 97
--- NOTE | 2023-08-12 15:39 | ED.CHESTPAIN ---
HPI - Chest Pain General Chief Complaint: Chest Pain Stated Complaint: chest pain, near syncope Time Seen by Provider: 08/12/23 14:36 History of Present Illness HPI narrative: Patient was at work eating lunch when she started feeling some chest pain and shortness or breath, she also noticed that she was having numbness and tingling in her fingers that seemed to go up her hands, and to her toes also. Since arrival here she is starting to feel slightly better. She does have a history of anxiety has tried various medications in the past but did not like them Related Data Home Medications Medication Instructions Recorded Confirmed metformin 500 mg tablet 500 mg PO HS 06/04/19 05/13/20 escitalopram oxalate 10 mg tablet 10 mg PO DAILY 08/02/19 05/13/20 (Lexapro) Allergies Allergy/AdvReac Type Severity Reaction Status Date / Time No Known Allergies Allergy Verified 08/12/23 14:35 Review of Systems Review of Systems: CONST: No fever. HEENT: No sore throat C/V: Chest tightness RESP: Shortness of breath GI: No abdominal pain : No dysuria. M/S: No joint pain. SKIN: No rash. NEURO: Lightheadedness PSYCH: Anxiety [facility] Past Medical History Medical History (Updated 08/12/23 @ 14:56 by Nikkie Alexis MD) Chronic cholecystitis without calculus Gall bladder disease Gallbladder polyp HSV (herpes simplex virus) infection Migraines Panic attacks PCOS (polycystic ovarian syndrome) Post depression Surgical History Surgical History History of x2 Hx laparoscopic cholecystectomy Family History Family History Father Blood clot in vein Diabetes mellitus Hypertension Son Epilepsy Sibling Club foot Mother Low blood pressure Unknown Hypertension Diabetes mellitus Cancer Social History Social History Smoking status: Former smoker Second hand tobacco smoke exposure: Yes Smoking end date: 06/01/15 Alcohol intake: current Substance use: current Gender identity (if verbalized by the patient): Female Spiritual care concerns: No Exam Narrative: EXAMINATION OF ORGAN SYSTEMS/BODY AREAS: Constitutional: Vital signs per nursing GENERAL:[No acute distress, non-toxic appearing.] HEAD: Normal with no signs of head trauma. EYES: EOMI, conjunctiva normal ENT: Hearing grossly intact LUNGS: Nonlabored breathing. HEART: [Regular rate and rhythm] ABD: [Soft], [nontender to palpation] EXT: Normal range of motion SKIN: [No rashes or lesions.] NEURO: [Alert and oriented x 3. No gross focal sensory or strength deficits.] Clear speech, normal gait, no facial droop. PSYCH: Normal affect Course Vital Signs Vital signs: Vital Signs Temperature 97.6 F 08/12/23 14:41 Pulse Rate 83 08/12/23 14:41 Respiratory Rate 17 08/12/23 14:41 Blood Pressure 130/93 H 08/12/23 14:41 Pulse Oximetry 99 08/12/23 14:41 Temperature 98.6 F 08/12/23 15:03 Pulse Rate 89 08/12/23 15:03 Respiratory Rate 14 08/12/23 15:03 Blood Pressure 120/73 08/12/23 15:03 Pulse Oximetry 97 08/12/23 15:03 Oxygen Delivery Room Air 08/12/23 14:47 MDM - Chest Pain MDM Narrative Medical decision making narrative: Patient with history of anxiety/panic attacks presenting here with symptoms consistent with panic attack. On exam patient is resting comfortably, normal vital signs. I will obtain EKG and chest xray to rule out arrhythmia/ischemia, pneumothorax, or other cause of chest discomfort/shortness of breath. She is PERC negative. Chest x-ray on my independent interpretation does not show any acute abnormality, no pneumothorax or consolidation. EKG - 12-Lead: Performed at 1442. Interpreted by me. [Sinus rhythm]. Rate 80. [Normal] axis. GA-interval [normal]. QRS duration [normal]. QTc [normal
== END 2023-08-12 15:51 | disposition home or self-care (01) ==
LOC: ANHED 15:41
PROVIDERS: Emergency Provider Emergency Medicine; Referring Provider Family Medicine
DX: F41.0 Panic disorder [episodic paroxysmal anxiety] (principal)
CPT/HCPCS: 71046; 93005; 99284

== ENCOUNTER 2023-09-21 09:57 | Outpatient (CLI) | payer BC, SELFPAY ==
[2023-09-21 11:53] LABS: Basophils Absolute Auto 0.1 K/mm3 (0.0-0.1); Basophils Percent Auto 0.7 % (0.2-1.2); Eosinophils Absolute Auto 0.3 K/mm3 (0-0.3); Eosinophils Percent Auto 4.9 % (0-4.4); Hematocrit 44.4 % (37.0-47.0); Hemoglobin 14.3 g/dL (12.0-15.0); Immature Granulocyte Absolute 0.03 K/mm3 (0.00-0.031); Immature Granulocyte Percent A 0.4 % (0-0.5); Lymphocytes Absolute Auto 1.57 K/mm3 (0.9-3.2); Lymphocytes Percent Auto 22.6 % (18.3-44.2); Mean Corpuscular HGB Conc 32.2 g/dl (32-36); Mean Corpuscular Hemoglobin 29.5 pg (26-34); Mean Corpuscular Volume 91.5 fl (80-100); Mean Platelet Volume 9.6 fl (7.4-10.4); Monocytes Absolute Auto 0.6 K/mm3 (0.1-0.6); Monocytes Percent Auto 9.2 % (2.6-8.5); Neutrophils Absolute Auto 4.3 K/mm3 (1.3-6.7); Neutrophils Percent Auto 62.2 % (45.5-73.1); Platelet Count Result 288 k/mm3 (150-375); Red Blood Count 4.85 M/mm3 (4.2-5.4); Red Cell Distribution Width 13.2 % (11.5-14.5)
[2023-09-21 12:13] LABS: Alanine Aminotransferase 15 U/L (6-35); Albumin Level 4.6 g/dL (3.5-5.1); Alkaline Phosphatase 66 U/L (38-126); Anion Gap 8 mmol/L (4-12); Aspartate Amino Transferase 32 U/L (14-36); Bilirubin,Total 0.8 mg/dL (0.2-1.3); Blood Urea Nitrogen 16 mg/dL (7-17); Calcium 9.6 mg/dL (8.4-10.2); Carbon Dioxide 25 mmol/L (22-30); Chloride 107 mmol/L (98-107); Cholesterol 151 mg/dL (0-200); Estimated Glomerular Filt Rate > 60; Glucose 100 mg/dL (65-110); HDL Direct 41 mg/dL; Potassium 4.3 mmol/L (3.4-5.0); Sodium 140 mmol/L (137-145); Triglycerides 121 mg/dL (<150)
[2023-09-21 12:14] LABS: D Dimer 0.44 ug/mL (<0.48)
[2023-09-21 13:28] LABS: Vitamin D 25 Hydroxy 21.5 ng/mL
[2023-09-21 14:48] LABS: LDL Cholesterol Direct 91 mg/dL
[2023-09-21 22:12] LABS: Hemoglobin A1C 5.3 % (<5.7)
[2023-09-24 09:59] LABS: Testosterone Free 3.5 pg/mL (0.1-6.4); Testosterone Total 26 ng/dL (2-45)
== END 2023-09-21 09:58 | disposition home or self-care (01) ==
LOC: ANHGOSHLAB 10:00
PROVIDERS: Visit Provider Nurse Practitioner Family
DX: R06.02 Shortness of breath (principal); E28.2 Polycystic ovarian syndrome; R55 Syncope and collapse; R07.9 Chest pain, unspecified; E78.5 Hyperlipidemia, unspecified; R73.03 Prediabetes; E55.9 Vitamin D deficiency, unspecified; E03.9 Hypothyroidism, unspecified; E53.8 Deficiency of other specified B group vitamins
CPT/HCPCS: 36415; 80053; 80061; 82306; 82607; 83036; 84402; 84403; 84443; 85025; 85380

== ENCOUNTER 2023-12-08 12:19 | Outpatient (CLI) | payer BC, SELFPAY ==
--- NOTE | ~2023-12-08 | XR_ITS ---
Clinical Indication: Cough PA and lateral views of the chest: Comparison: 08/12/2023 Findings: The lungs are clear, without evidence of focal consolidation or pleural effusion. Cardiome diastinal silhouette is within normal limits. Bones and soft tissues are unremarkable. Impression: Normal chest. Reviewed, dictated and finalized at location . Impression: Normal chest.
== END 2023-12-08 12:20 ==
PROVIDERS: PCP Family Medicine; Visit Provider Nurse Practitioner
DX: R05.9 Cough, unspecified (principal)
CPT/HCPCS: 71046

== ENCOUNTER 2023-12-08 12:56 | Outpatient (CLI) | payer BC, SELFPAY ==
[2023-12-08 14:28] LABS: Influenza A QL RT-PCR Negative (Negative); Influenza B QL RT-PCR Negative (Negative); RSV RNA, RT-PCR Negative (Negative); SARS-CoV-2 RNA PCR Negative (Negative)
== END 2023-12-08 12:57 | disposition home or self-care (01) ==
LOC: ANHLAB 12:57
PROVIDERS: PCP Family Medicine; Visit Provider Nurse Practitioner
DX: R05.9 Cough, unspecified (principal); Z20.822 Contact with and (suspected) exposure to COVID-19
CPT/HCPCS: 87637

== ENCOUNTER 2024-02-15 08:23 | Outpatient (CLI) | payer BC, SELFPAY ==
--- NOTE | ~2024-02-15 | CT_ITS ---
CT brain wo con Ordering provider: Cassandra Saunders NP History: 28 years Female with . Unspecified convulsions . Comparison: May 13, 2020 Technique: CT of the head without contrast. Radiation reduction technique utilized.The dose-length product was 645.69 mGy-cm FINDINGS: BRAIN PARENCHYMA AND CSF SPACES: No midline shift, mass effect or hemorrhage. The brain parenchyma a nd CSF spaces are otherwise normal. VISUALIZED PARANASAL SINUSES: Well aerated. MASTOIDS: Well aerated. BONES: The bones appear intact. SOFT TISSUES: Visualized nasopharynx is normal. Superficial soft tissues are normal. IMPRESSION: No acute intracranial findings. Reviewed, dictated and finalized at location A.
== END 2024-02-15 08:24 | disposition home or self-care (01) ==
LOC: GOSHIMG 08:23
PROVIDERS: PCP Nurse Practitioner Family; Visit Provider Nurse Practitioner Family
DX: R56.9 Unspecified convulsions (principal); Z87.898 Personal history of other specified conditions
CPT/HCPCS: 70450

== ENCOUNTER 2024-02-26 08:11 | Outpatient (CLI) | payer BC, SELFPAY ==
--- NOTE | 2024-03-01 11:24 | WPDNEUROLOGY ---
Neurology EEG Report General Information Date of Study: 03/27/24 TEST eeg DIAGNOSIS Unspecified convulsions CONDITION OF RECORDING awake drowsy and sleep EEG NUMBER [id number] CLINICAL HISTORY unspecified convulsions EEG DESCRIPTION basic resting occipital frequency consists of low voltage 9 to 11 hertz per 2nd alpha admixed with low-voltage 15 to 18 hertz per 2nd beta and with good anterior to posterior gradient. Low-voltage beta activity seen diffusely admixed with waxing and waning posterior alpha rhythm evolving into bilateral symmetrical sleep activity with admixture of beta alpha and theta activity in addition to symmetrical sleep spindles. photic stimulation produced normal drive. Hyperventilation produced normal and symmetrical buildup . Non paroxysmal. Nonfocal. Nonlateralizing. IMPRESSION Normal record
== END 2024-02-26 08:12 | disposition home or self-care (01) ==
PROVIDERS: PCP Nurse Practitioner Family; Visit Provider Nurse Practitioner Family
DX: R56.9 Unspecified convulsions (principal); Z87.898 Personal history of other specified conditions
CPT/HCPCS: 95816

== ENCOUNTER 2024-12-10 14:09 | Emergency (ER) | payer BC, SELFPAY ==
--- OUTSIDE RECORDS SUMMARY | 2024-12-10 14:11 | XMS_ITS | Clinical Summary ---
Author Organization [facility] Address [address] [place] [address] Care Team Providers Care Refrigerator Assembler Name Role Phone None, Provider MD Primary Care Provider Unavaila ble Allergies No known active allergies Medications azithromycin (ZITHROMAX) 500 mg tablet Take 1 tablet (500 mg total) by mouth daily. 5 tablet 07/10/2021 Active methylPREDNISol one, LUANA, 4 MG tablet 6 TABLETS ON DAY ONE, 5 TABLETS DAY TWO, 4 TABLETS DAY THREE, 3 TABLETS DAY FOUR, 2 TABLETS DAY FIVE, AND 1 TABLET DAY SIX 1 each 07/10/2021 Active Social History Tobacco Use Types Packs/Day Years Used Date Smoking Tobacco: Never Smokeless Tobacco: Never Alcohol Use Standard Drinks/Week Comments Never 0 (1 standard drink = 0.6 oz pur e alcohol) Comments No Sex and Gender Information Value Date Recorded Sex Assigned at Not on file Legal Sex Female 11:57 AM SENIOR SALES ASSOCIATE Gender Identity Not on file Sexual Orientation Not on file Last Filed Vital Signs Vital Sign Reading Time Taken Comments Blood Pressure 101/54 07/10/2021 5:00 PM SENIOR SALES ASSOCIATE Pulse 81 07/10/2021 3:00 PM SENIOR SALES ASSOCIATE Temperature 37.4 C (99.4 F) 07/10/2021 12:11 PM SENIOR SALES ASSOCIATE Respiratory Rate 14 07/10/2021 5:00 PM SENIOR SALES ASSOCIATE Oxygen Saturation 97% 07/10/2021 5:00 PM SENIOR SALES ASSOCIATE Inhaled Oxygen Concentration - - Weight 85.4 kg (188 lb 4.4 oz) 07/10/2021 12:11 PM SENIOR SALES ASSOCIATE Height 157.5 cm (5' 2) 07/10/2021 12:11 PM SENIOR SALES ASSOCIATE Body Mass Index 34.44 07/10/2021 12:11 PM SENIOR SALES ASSOCIATE Plan of Treatment Health Maintenance Due Date Last Done Comments Hepatitis B Vaccines (3 of 3 - 3-dose series) 02/08/1996 1995, 1995 Annual Physical 08/07/1998 Hepatitis C 08/07/2013 DTaP, Tdap and Td Vaccines ( 1 - Tdap) 08/07/2014 02/11/1996, 1995, 1995 Cervical Cancer Screening Pa p Smear (Age 21 to 29) Every 3 Years 05/19/2020 05/19/2017 Cervical Cancer Screening 05/19/2020 COVID-19 Vaccine (2023- 5 season) 2024 06/01/2021, 08/20/2020, 07/18/2020 HPV Vaccines Aged Out No longer eligi ble based on patient's age to complete this topic Meningococcal B Vaccine Aged Out No l onger eligible based on patient's age to complete this topic Meningococcal Vaccine Aged Out No donell teodora eligible based on patient's age to complete this topic Pneumococcal Vaccine: Pediatrics (0 to 5 Years) and At-Risk Patients (6 to 49 Years) Aged Out No longer eligible b ased on patient's age to complete this topic RSV Immunizations Under 20 Months Aged Out No longer eligible b ased on patient's age to complete this topic Insurance Care Teams Refrigerator Assembler Relationship Specialty Start Date End Date None, Provider, PCP - General 07/10/21
--- OUTSIDE RECORDS SUMMARY | 2024-12-10 14:11 | XMS_ITS | Clinical Summary ---
Author Organization [facility] [address] [address] [facility] 3rd [place] [address] Phone Care Team Providers Care Hydraulic Bull Riveter Operator Name Role Phone Unavailable Primary Care Provider Unavailabl e Social History Tobacco Use Types Packs/Day Years Used Date Smoking Tobacco: Never Assessed Comments Unknown Sex and Gender Information Value Date Recorded Sex Assigned at Not on file Legal Sex Female 2:20 PM CDT Gender Identity Not on file Sexual Orientation Not on file Plan of Treatment Health Maintenance Due Date Last Done Comments DTAP/TDAP/TD VACCINES (1 - Tdap) 08/07/2014 HEPATITIS B VACCINES (1 of 3 - 19+ 3-dose series) 08/07/2014 CERVICAL CANCER SCREENING 08/07/2016 HPV/Cotest (21-29) 08/07/2016 PAP SMEAR 08/07/2016 INFLUENZA VACCINE (#1) 2024 HPV VACCINES Aged Out No longer eligi ble based on patient's age to complete this topic Insurance
--- OUTSIDE RECORDS SUMMARY | 2024-12-10 14:11 | XMS_ITS | Clinical Summary ---
Author Organization [facility] Address [address] [place] [address] Care Team Providers Care Salon/Spa Manager Name Role Phone Cassandra Saunders APRN, CNP Primary Care Provider + Medications ergocalciferol (VITAMIN D) 87641 UNIT Capsule Take 50,000 Units by mouth. Active Family History Medical History Relation Name Comments Diabetes Father Hypertension Father Hypotension Mother Relation Name Status Comments Father Mother Social History Tobacco Use Types Packs/Day Years Used Date Smoking Tobacco: Former Cigarettes Smokeless Tobacco: Never Tobacco Cessation:Counseling Given: Not Answered Alcohol Use Standard Drinks/Week Comments Yes 0 (1 standard drink = 0.6 oz pur e alcohol) Comments Unknown Sex and Gender Information Value Date Recorded Sex Assigned at Not on file Legal Sex Female 10:58 AM CLOTH BLEACHING SUPERVISOR Gender Identity Not on file Sexual Orientation Not on file Plan of Treatment Health Maintenance Due Date Last Done Comments Hepatitis C Virus (HCV) Screening 1995 TdaP Immunization 1995 Hepatitis B Immunization (3 of 3 - 3-dose series) 02/08/1996 1995, 1995 Pap Smear 08/07/2016 SARS-COV-2 Immunization ( season) 2024 06/01/2021, 08/20/2020, 07/18/2020 Influenza Immunization (Season Ended) 2025 02/25/2023, 03/19/2021, 03/19/2020, Additional history exists Respiratory Syncytial Virus (RSV) Immunization (Adult) (1 - 1-dose 75+ series) 08/07/2070 DTaP/Tdap/Td Immunization Discontinued 1995, 1995, 1995 Human Papillomavirus (HPV) Immunization Aged Out No longer eligible based on patient's age to complete this topic Meningococcal Immunization (ACWY) Aged Out No longer eligible based on patient's age to complete this topic Pneumococcal Immunization Combined Aged Out No longer eligible based on patient's age to complete this topic Rotavirus Immunization Aged Out No lo nger eligible based on patient's age to complete this topic Insurance [facility] Care Teams Salon/Spa Manager Relationship Specialty Start Date End Date Cassandra Saunders APRN, AMINAH [address] [place] [address] [place] [address] PCP - General Certified Nurse Practitioner 06/02/24
--- OUTSIDE RECORDS SUMMARY | 2024-12-10 14:11 | XMS_ITS | Clinical Summary ---
Author Organization [facility] Address [address] [place] [address] Care Team Providers Care Claim Review Medical Director Name Role Phone Verito Cobos MD Primary Care Provider [phone] Source Comments [facility],non-owned Affiliates and Associated Physician Practices is amultiple site organization consisting of ambulatory clinics and hospital sitesin [place], [place], [place] and [place]. This disclosure is being madepursuant to the Care Everywhere program and may not contain all information available regarding this patient. Last updated 18.[facility] Allergies No known active allergies Medications * Be aware that medications may not be up to date on this document. Alwaysverify current medications with the patient. norethin-eth estradiol-FE (LOESTRIN FE 06/20) 1-20 MG-MCG tabletIndication s: control counseling,BCP ( control pills) initiation Take 1 Tab by mouth once daily 1 Packet 11 01/02/2015 Active azithromycin (ZITHROMAX) 250 MG tablet Take 1 Tab by mouth once daily 4 Tab 0 01/30/2015 Active Family History Medical History Relation Name Comments Hypertension Other 1 Heart Failure Other 2 Relation Name Status Comments Father Alive Mother Alive Other 1 Other 2 Sister Alive Social History Tobacco Use Types Packs/Day Years Used Date Smoking Tobacco: Passive Smo ke Exposure - Never Smoker Cigarettes Comments:sister Alcohol Use Standard Drinks/Week Comments Yes 0 (1 standard drink = 0.6 oz pur e alcohol) occ Comments No Sex and Gender Information Value Date Recorded Sex Assigned at Not on file Legal Sex Female 8:37 AM INSPECTION AND TESTING SUPERVISOR Gender Identity Not on file Sexual Orientation Not on file Last Filed Vital Signs Vital Sign Reading Time Taken Comments Blood Pressure 113/72 06/25/2017 10:28 AM INSPECTION AND TESTING SUPERVISOR Pulse 83 06/25/2017 10:28 AM INSPECTION AND TESTING SUPERVISOR Temperature 36.6 C (97.9 F) 06/25/2017 10:28 AM INSPECTION AND TESTING SUPERVISOR Respiratory Rate 18 06/25/2017 10:28 AM INSPECTION AND TESTING SUPERVISOR Oxygen Saturation 98% 06/25/2017 10:28 AM INSPECTION AND TESTING SUPERVISOR Inhaled Oxygen Concentration - - Weight 76.3 kg (168 lb 3.2 oz) 06/25/2017 10:28 AM INSPECTION AND TESTING SUPERVISOR Height 157.5 cm (5' 2) 06/25/2017 10:28 AM INSPECTION AND TESTING SUPERVISOR Body Mass Index 30.76 06/25/2017 10:28 AM INSPECTION AND TESTING SUPERVISOR Plan of Treatment Health Maintenance Due Date Last Done Comments HIV SCREENING 08/07/2010 HEPATITIS C SCREENING 08/03/2013 DTAP/TDAP/TD VACCINES (1 - Tdap) 08/07/2014 HEPATITIS B VACCINE (1 of 3 - 19+ 3-dose series) 08/07/2014 HPV VACCINE (1 - 3-dose SCDM series) 08/07/2022 COVID-19 VACCINE (1 - 2023-2 5 season) 2024 DEPRESSION SCREENING 06/01/2024 INFLUENZA VACCINE (#1) 2025 ZOSTER VACCINE (1 of 2) 08/07/2045 HIB VACCINE Aged Out No longer eligi ble based on patient's age to complete this topic MENINGOCOCCAL (Group B) VACC INE SHARED DECISION-MAKING Aged Out No longer eligibl e based on patient's age to complete this topic MENINGOCOCCAL GROUPS A/C/Y/W VACCINE Aged Out No longer eligible b ased on patient's age to complete this topic PNEUMOCOCCAL VACCINE Aged Out No long er eligible based on patient's age to complete this topic Insurance Care Teams Claim Review Medical Director Relationship Specialty Start Date End Date Verito Cobos MD [address] [place] [address] PCP - General 10/12/17
--- OUTSIDE RECORDS SUMMARY | 2024-12-10 14:11 | XMS_ITS | Clinical Summary ---
Author Organization [facility] Address [address] [place] [address] Care Team Providers Care Tenon Machine Operator Name Role Phone Citlali Aleman NP Primary Care Provider [phone] Allergies No known active allergies Medications levonorgestreL (MIRENA) IUD 1 each by intrauterine route once Active PARoxetine (PAXIL) 10 mg tabletIndicatio ns:Anxiety Take 1 tablet (10 mg total) by mouth every morning 90 tablet 3 Active Active Problems Problem Noted Date Diagnosed Date Obesity (BMI 30-39.9) 02/25/2023 Assessment & Plan (02/25/2023 9:46 AM CDT): Discussed the patients BMI: The BMI is above average BMI management is complete. BMI follow-up includes: Nutrition Counseling and education provided Physical exam, annual 02/25/2023 Anxiety 02/25/2023 Assessment & Plan (02/25/2023 10:03 AM CDT): This is a significant, separately identifiable problem that was evaluated and managed on the same day as the wellness exam Immunizations Immunization Administration Dates Next Due DTP / HiB 02/11/1996,1995,1995 Hep B, Adolescent or Pediatric 1995,1995 Influenza, Quadrivalent, Rec ombinant, Egg Free, Preservative Free, Intramuscular 03/19/2020,02/19/2019 Influenza, Quadrivalent, Spl it, Preservative Free, Intramuscular 02/25/2023,03/19/2021 MMR 07/04/2016 OPV 02/11/1996,1995,1995 Rho (D) Immune Globulin, IV or IM 02/01/2018, Surgical History Surgery Date Site/Laterality Comments GALLBLADDER SURGERY SECTION GALLBLADDER SURGERY Medical History Medical History Date Comments Anxiety PCOS (polycystic ovarian syndrome) Family History Medical History Relation Name Comments Blood Clot Father Diabetes Father Hypertension Father cardiac ablation Mother Asthma Sister Relation Name Status Comments Brother Alive Father Alive Mother Alive Sister Alive Social History Tobacco Use Types Packs/Day Years Used Date Smoking Tobacco: Never Smokeless Tobacco: Never Tobacco Cessation:Counseling Given: Not Answered PHQ-2 Answer Date Recorded PHQ-2 Total Score (If total score is 3 or more points, staff should administer the PHQ-9) 0 02/25/2023 Comments No Sex and Gender Information Value Date Recorded Sex Assigned at Not on file Legal Sex Female 11:09 AM WATCH REPAIR PERSON Gender Identity Female 02/24/2023 9:28 PM CDT Sexual Orientation Straight 02/24/2023 9: 28 PM CDT Obstetrics History Last Filed Vital Signs Vital Sign Reading Time Taken Comments Blood Pressure 112/78 02/25/2023 9:37 AM CDT Pulse 93 02/25/2023 9:37 AM CDT Temperature 36.6 C (97.8 F) 02/25/2023 9:37 AM CDT Respiratory Rate 18 07/10/2021 10:12 AM WATCH REPAIR PERSON Oxygen Saturation 97% 02/25/2023 9:37 AM CDT Inhaled Oxygen Concentration - - Weight 96.2 kg (212 lb) 02/25/2023 9:37 AM CDT Height 157.5 cm (5' 2) 02/25/2023 9:37 AM CDT Body Mass Index 38.78 02/25/2023 9:37 AM CDT Plan of Treatment Health Maintenance Due Date Last Done Comments Cervical Cancer Screening 1995 Hepatitis C Screening 1995 DTaP/Tdap/Td Vaccine (4 - Tdap) 08/07/2006 02/11/1996, 1995, 1995 Varicella Vaccines (1 of 2 - 13+ 2-dose series) 08/07/2008 Covid-19 Vaccine (4 - 2024-25 season) 2024 06/01/2021, 08/20/2020, 07/18/2020 Depression Screening 02/26/2024 02/25/2023 Regular Well Visit/Exam 18-64 02/26/2024 02/25/2023 Influenza Vaccine (Season Ended) 2025 02/25/2023, 03/19/2021, 03/19/2020, Additional history exists Hepatitis B Screening Completed 1995, 996 HPV Vaccines Aged Out No longer eligi ble based on patient's age to complete this topic Pneumococcal vaccine <65 Aged Out No longer eligible based on patient's age to complete this topic Insurance [employer] [place] [employer] Care Teams Tenon Machine Operator Relationship Specialty Start Date End Date Citlali Aleman, CASINO FLOOR PERSON [facility] [place] [address] PCP - General Internal Medicine 02/25/23
--- OUTSIDE RECORDS SUMMARY | 2024-12-10 14:11 | XMS_ITS | Referral Summary ---
Author Organization [facility] Address [address] [place] [address] Care Team Providers Care Stripper Printed Circuit Boards Name Role Phone Citlali Aleman NP Primary Care Provider Allergies No known active allergies Medications levonorgestreL [...] (D) Immune Globulin, IV or IM 02/01/2018, Social History Tobacco Use Types Packs/Day Years Used Date Smoking Tobacco: Never Smokeless Tobacco: Never Tobacco Cessation:Counseling Given: Not Answered PHQ-2 Answer Date Recorded PHQ-2 Total Score (If total score is 3 or more points, staff should administer the PHQ-9) 0 02/25/2023 Comments No Sex and Gender Information Value Date Recorded Sex Assigned at Not on file Legal Sex Female 11:09 AM RADIO TALK SHOW HOST Gender Identity Female 02/24/2023 9:28 PM CDT Sexual Orientation Straight 02/24/2023 9: 28 PM CDT Last Filed Vital Signs Vital Sign Reading Time Taken Comments Blood Pressure 112/78 02/25/2023 9:37 AM CDT Pulse 93 02/25/2023 9:37 AM CDT Temperature 36.6 C (97.8 F) 02/25/2023 9:37 AM CDT Respiratory Rate 18 07/10/2021 10:12 AM RADIO TALK SHOW HOST Oxygen Saturation 97% 02/25/2023 9:37 AM CDT Inhaled Oxygen Concentration - - Weight 96.2 kg (212 lb) 02/25/2023 9:37 AM CDT Height 157.5 cm (5' 2) 02/25/2023 9:37 AM CDT Body Mass Index 38.78 02/25/2023 9:37 AM CDT Plan of Treatment Not on file Insurance [facility] Heart Buddy OOS Member Subscriber Plan / Payer (Ef fective 2022-Present) Name:Meenakshi Adame Relation to Subscriber:Self Name:Meeankshi Adame Payer ID:[id number] (NAIC) Type: [employer] Address: [address] [place] [id number] Care Teams Stripper Printed Circuit Boards Relationship Specialty Start Date End Date Citlali Aleman NP [address] [facility] [address] [place] [address] PCP - General Internal Medicine 02/25/23
[2024-12-10 14:17] VITALS: BP 140/85; PULSE 79; RESP 20; TEMP 36.6; O2SAT 100
[2024-12-10 14:22] VITALS: PULSE 82
--- NOTE | 2024-12-10 14:25 | ECG_ITS ---
Test Date: 2024-12-10 14:32:24 Measurements Intervals Mcdougal Rate: 69 P: 22 FL: 171 QRS: 39 QRSD: 98 T: 42 QT: 391 QTc: 420 Interpretive Statements SINUS RHYTHM NONSPECIFIC T-WAVE ABNORMALITY ABNORMAL ECG No previous ECG available for comparison Electronically Signed On 12-10-2024 16:07:08 CDT by Andrea Naqvi M.D.
--- OUTSIDE RECORDS SUMMARY | 2024-12-10 14:48 | XMS_ITS | Clinical Summary ---
Author Organization [facility] Address [address] [place] [address] Care Team Providers Care Manager Practice Name Role Phone None, Provider MD Primary [...] on file Legal Sex Female 11:57 AM METALLURGICAL SPECIALIST Gender Identity Not on file Sexual Orientation Not on file Last Filed Vital Signs Vital Sign Reading Time Taken Comments Blood Pressure 101/54 07/10/2021 5:00 PM METALLURGICAL SPECIALIST Pulse 81 07/10/2021 3:00 PM METALLURGICAL SPECIALIST Temperature 37.4 C (99.4 F) 07/10/2021 12:11 PM METALLURGICAL SPECIALIST Respiratory Rate 14 07/10/2021 5:00 PM METALLURGICAL SPECIALIST Oxygen Saturation 97% 07/10/2021 5:00 PM METALLURGICAL SPECIALIST Inhaled Oxygen Concentration - - Weight 85.4 kg (188 lb 4.4 oz) 07/10/2021 12:11 PM METALLURGICAL SPECIALIST Height 157.5 cm (5' 2) 07/10/2021 12:11 PM METALLURGICAL SPECIALIST Body Mass Index 34.44 07/10/2021 12:11 PM METALLURGICAL SPECIALIST Plan of Treatment Health Maintenance Due Date [...] to complete this topic Insurance Care Teams Manager Practice Relationship Specialty Start Date End Date None, Provider, PCP - General 07/10/21
--- OUTSIDE RECORDS SUMMARY | 2024-12-10 14:48 | XMS_ITS | Clinical Summary ---
Author Organization [facility] [address] [facility] [address] [place] [address] Phone Care Team Providers Care Production Finisher Name Role Phone Unavailable Primary Care Provider [...]
--- OUTSIDE RECORDS SUMMARY | 2024-12-10 14:48 | XMS_ITS | Clinical Summary ---
Author Organization Address [address] [place] [address] Care Team Providers Care Machine Operations Supervisor Name Role Phone Cassandra Saunders APRN, CNP Primary Care Provider + Medications ergocalciferol (VITAMIN D) 06001 UNIT Capsule Take 50,000 Units by mouth. [...] on file Legal Sex Female 10:58 AM CUSTOMER CONSULTING MANAGER Gender Identity Not on file Sexual Orientation [...] patient's age to complete this topic Insurance [facility] Care Teams Machine Operations Supervisor Relationship Specialty Start Date End Date Cassandra Saunders APRN, AMINAH [address] [place] [address] [place] [address] PCP - General Certified Nurse Practitioner 06/02/24
--- OUTSIDE RECORDS SUMMARY | 2024-12-10 14:48 | XMS_ITS | Referral Summary ---
Author Organization [facility] Address [address] [place] [address] Care Team Providers Care Program Advocate Name Role Phone Citlali Aleman NP Primary Care Provider [phone] Allergies No known active allergies Medications levonorgestreL [...] on file Legal Sex Female 11:09 AM SENIOR NURSE MANAGER Gender Identity Female 02/24/2023 9:28 PM CDT Sexual Orientation Straight 02/24/2023 9: 28 PM CDT Last Filed Vital Signs Vital Sign Reading Time Taken Comments Blood Pressure 112/78 02/25/2023 9:37 AM CDT Pulse 93 02/25/2023 9:37 AM CDT Temperature 36.6 C (97.8 F) 02/25/2023 9:37 AM CDT Respiratory Rate 18 07/10/2021 10:12 AM SENIOR NURSE MANAGER Oxygen Saturation 97% 02/25/2023 9:37 AM CDT Inhaled Oxygen Concentration - - Weight 96.2 kg (212 lb) 02/25/2023 9:37 AM CDT Height 157.5 cm (5' 2) 02/25/2023 9:37 AM CDT Body Mass Index 38.78 02/25/2023 9:37 AM CDT Plan of Treatment Not on file Insurance [facility] [employer] OOS Member Subscriber Plan / Payer (Ef fective 2022-Present) Name:Meenakshi Adame Relation to Subscriber:Self Name:Meenakshi Adame Payer ID:[id number] (NAIC) Type: [employer] Address: [address] [place] [phone] Care Teams Program Advocate Relationship Specialty Start Date End Date Citlali Aleman NP [address] [facility] [address] [place] [address] PCP - General Internal Medicine 02/25/23
--- OUTSIDE RECORDS SUMMARY | 2024-12-10 14:48 | XMS_ITS | Clinical Summary ---
Author Organization [facility] Address [address] [place] [address] Care Team Providers Care Manager Completions Name Role Phone Citlali Aleman NP Primary Care Provider [phone] Allergies No known active allergies Medications levonorgestreL [...] on file Legal Sex Female 11:09 AM LAB INTERN Gender Identity Female 02/24/2023 9:28 PM CDT Sexual Orientation Straight 02/24/2023 9: 28 PM CDT Obstetrics History Last Filed Vital Signs Vital Sign Reading Time Taken Comments Blood Pressure 112/78 02/25/2023 9:37 AM CDT Pulse 93 02/25/2023 9:37 AM CDT Temperature 36.6 C (97.8 F) 02/25/2023 9:37 AM CDT Respiratory Rate 18 07/10/2021 10:12 AM LAB INTERN Oxygen Saturation 97% 02/25/2023 9:37 AM CDT [...] patient's age to complete this topic Insurance [employer] CHOICE [place] [employer] OOS Care Teams Manager Completions Relationship Specialty Start Date End Date Citlali Aleman, BOBBIN INSPECTOR [facility] [place] [address] PCP - General Internal Medicine 02/25/23
--- OUTSIDE RECORDS SUMMARY | 2024-12-10 14:48 | XMS_ITS | Clinical Summary ---
Author Organization [facility] Address [address] [place] [address] Care Team Providers Care Water Service Dispatcher Name Role Phone Verito Cobos MD Primary Care Provider [phone] Source Comments [facility],non-owned Affiliates and Associated Physician Practices is amultiple site organization consisting of ambulatory clinics and hospital sitesin [place], [place], [place] and [place]. This disclosure is being madepursuant to the Care Everywhere program and may not contain all information available regarding this patient. Last updated 18.[facility] [employer] Allergies No known active allergies Medications * [...] on file Legal Sex Female 8:37 AM ELECTRONIC WARFARE LINGUIST Gender Identity Not on file Sexual Orientation Not on file Last Filed Vital Signs Vital Sign Reading Time Taken Comments Blood Pressure 113/72 06/25/2017 10:28 AM ELECTRONIC WARFARE LINGUIST Pulse 83 06/25/2017 10:28 AM ELECTRONIC WARFARE LINGUIST Temperature 36.6 C (97.9 F) 06/25/2017 10:28 AM ELECTRONIC WARFARE LINGUIST Respiratory Rate 18 06/25/2017 10:28 AM ELECTRONIC WARFARE LINGUIST Oxygen Saturation 98% 06/25/2017 10:28 AM ELECTRONIC WARFARE LINGUIST Inhaled Oxygen Concentration - - Weight 76.3 kg (168 lb 3.2 oz) 06/25/2017 10:28 AM ELECTRONIC WARFARE LINGUIST Height 157.5 cm (5' 2) 06/25/2017 10:28 AM ELECTRONIC WARFARE LINGUIST Body Mass Index 30.76 06/25/2017 10:28 AM ELECTRONIC WARFARE LINGUIST Plan of Treatment Health Maintenance Due Date [...] to complete this topic Insurance Care Teams Water Service Dispatcher Relationship Specialty Start Date End Date Verito Cobos MD [address] [place] [address] PCP - General 10/12/17
--- NOTE | 2024-12-10 15:04 | ED.GENADULT ---
HPI - General Adult General Chief complaint: Dizziness Stated complaint: seizure x 30 min, nausea, headahcee Time Seen by Provider: 12/10/24 14:42 Source: patient, family and RN notes reviewed Mode of arrival: ambulatory Limitations: no limitations History of Present Illness HPI narrative: 29 y/o WF in the ED for c/o sz today at work, klarissa 3 hrs ago. Pt has hx of epileptic sz, sees neuro for it, last visit 3-4 weeks ago. Pt states she had a seizure with perceived LOC. Pt noted that she was sitting in a chair and wa unable to move for 30 minutes, that her arms and legs were paralyzed. Pt states once resolved, pt has no more symptoms, save slight dizziness and MARY that is 6/10 per pt. Pt currently taking zonisamide daily for sz. Pt working w/ neuro to increase dosage 25mg weekly, currently at 100mg. Pt unsure of triggers, but has been under increased stress d/t her son being admitted to the hospital for cancer w/u. Pt next neuro appt Mar 2025. Related Data Home Medications ?Medication ?Instructions ?Recorded ?Confirmed ?Last Taken ?Type zonisamide 25 mg capsule 100 mg PO DAILY 12/10/24 12/10/24 Unknown History Allergies Allergy/AdvReac Type Severity Reaction Status Date / Time No Known Allergies Allergy Verified 12/10/24 14:23 Review of Systems Review of Systems: CONSTITUTIONAL: Denies fever, chills, or sweats. EYES: Denies visual changes, redness, or discharge. ENT: Denies rhinorrhea, congestion, sore throat, or otalgia. CARDIOVASCULAR: Denies chest pain, palpitations, or edema. RESPIRATORY: Denies cough or dyspnea. GASTROINTESTINAL: Denies abdominal pain, nausea, vomiting, or diarrhea. GENITOURINARY: Denies dysuria or hematuria. SKIN: Denies rash or itching. MUSCULOSKELETAL: Denies back pain, joint pain, or myalgia. NEUROLOGIC: Endorses headache. Denies numbness, weakness. PSYCHIATRIC: Denies anxiety or depression. [facility] Past Medical History Medical History Dizziness Seizure disorder History of seizures Muscle spasm History of palpitations Post-COVID syndrome SOB (shortness of breath) on exertion Chest pain Post-cholecystectomy syndrome Encounter for surgical aftercare following surgery on the digestive system Migraines Panic attacks Gall bladder disease Chronic cholecystitis without calculus Gallbladder polyp Post depression 39 weeks gestation of PCOS (polycystic ovarian syndrome) HSV (herpes simplex virus) infection Surgical History Surgical History Hx laparoscopic cholecystectomy S/P (~06/27/19) History of x2 Family History Family History Father Blood clot in vein Diabetes mellitus Hypertension Son Epilepsy Sibling Club foot Mother Low blood pressure Unknown Hypertension Diabetes mellitus Cancer Social History Social History Smoking status: Former smoker Second hand tobacco smoke exposure: Yes Smoking end date: 06/01/15 Alcohol intake: current Substance use: current Gender identity (if verbalized by the patient): Female Spiritual care concerns: No Exam Narrative: GENERAL: Well-appearing, well-nourished, and in no acute distress. HEAD: Normocephalic, atraumatic. EYES: PERRLA and EOMI. ENT: Nares clear, no rhinorrhea or epistaxis. Mucous membranes moist. NECK: Supple. CHEST: Clear to auscultation. No respiratory distress. HEART: Regular rate and rhythm. No murmur heard. Normal peripheral pulses. ABDOMEN: Soft, nontender, nondistended, normal active bowel sounds. EXTREMITIES: Normal range of motion. No edema. Pt has CAM boot to the LLE for previous ankle injury. SKIN: Warm, dry, no rash. NEURO: No focal deficits. Alert and oriented x3. PSYCH: Normal mood and affect. Course Vital Signs Vital signs: Vital Signs Temperature 36.6 C 12/10/24 14:17 Pulse Rate 79 12/10/24 14:17 Respiratory Rate 20 12/10/24 14:17 Blood Pressure 140/85 12/10/24 14:17 Pulse Oximetry 100 12/10/24 14:17 Oxygen Delivery Room Air 12/10/24 14:17 Temperature 36.6 C 12/10/24 14:17 Pulse Rate 103 H 12/10/24 15:45 Respiratory Rate 20 12/10/24 15:45 Blood Pressure 133/99 H 12/10/24 15:45 Pulse Oximetry 100 12/10/24 15:45 Oxygen Delivery Room Air 12/10/24 14:17 Medical Decision Making MDM Narrative Medical decision making narrative: EKG obtained as per protocol and normal, see interpretation in the chart. No labs or imaging obtained as patient is current patient with Neurology, last visit 3 or 4 weeks ago, and currently on medication for seizures. Patient's states seizures have been better but with the addition of stress related to child's admission may be the cause. Patient given 1 g Tylenol in the department for headache. Patient vital signs stable and pain now 2/10 after Tylenol administration. Discussed anxiety and stress reaction as possible cause of flatus seizure due to child illness and admission. Patient advised to follow-up with neurology and primary care. Differential Diagnosis Differential Diagnosis: Seizure, anxiety, syncope Medical Records Medical records reviewed: Yes I reviewed the external patient's medical records. Vital Signs Vital Signs: Vital Signs Temperature 36.6 C 12/10/24 14:17 Pulse Rate 79 12/10/24 14:17 Respiratory Rate 20 12/10/24 14:17 Blood Pressure 140/85 12/10/24 14:17 Pulse Oximetry 100 12/10/24 14:17 Oxygen Delivery Room Air 12/10/24 14:17 Temperature 36.6 C 12/10/24 14:17 Pulse Rate 103 H 12/10/24 15:45 Respiratory Rate 20 12/10/24 15:45 Blood Pressure 133/99 H 12/10/24 15:45 Pulse Oximetry 100 12/10/24 15:45 Oxygen Delivery Room Air 12/10/24 14:17 ECG Data EKG #1: Attestation: I personally reviewed and interpreted this ECG as follows: ECG completion date: 12/10/24 ECG completion time: 14:32 Prior ECG tracings: available for review EKG Interpretation: normal rate, sinus rhythm, no ectopy and normal QRS Discharge Plan Discharge Clinical Impression: Seizure, Stress Patient Disposition: Home Condition: Stable Instructions: Antibiotic Form, Stress (ED), Epilepsy (ED) Additional Instructions: Call Neurology this week to discuss possible need for sooner appointment. Continue seizure medicines per neurology direction. Contact primary care provider to set up a yearly appointment and ER follow-up. Patient Language: Czech Prescriptions: No Action zonisamide 25 mg capsule 100 mg PO DAILY Rx Instructions: increased dose slowly. 25 mg daily at bedtime for 1 week and then increase at a rate of 25 mg a week to a target dose of 300 mg at bedtime ergocalciferol (vitamin D2) [Vitamin D2] 1,250 mcg (50,000 unit) capsule 1,250 mcg PO WEEKLY Qty: 12 1RF Follow-up/Referrals: Cassandra Saunders NP [Primary Care Provider] - 1 Week Raffy Ramey MD [Physician] - Time of Disposition: 17:25
[2024-12-10] MEDS: ACETAMINOPHEN 500 MG TABLET 1000 MG PO (15:43)
[2024-12-10 15:45] VITALS: BP 133/99; PULSE 103; RESP 20; O2SAT 100
[2024-12-10 16:52] VITALS: BP 157/87; PULSE 87; RESP 19; O2SAT 100
[2024-12-10 17:31] VITALS: BP 111/72; PULSE 73; RESP 17; O2SAT 97
== END 2024-12-10 17:32 | disposition home or self-care (01) ==
PROVIDERS: Emergency Provider Registered Nurse Emergency; PCP Nurse Practitioner Family
DX: G40.909 Epilepsy, unspecified, not intractable, without status epilepticus (principal); F43.9 Reaction to severe stress, unspecified; E28.2 Polycystic ovarian syndrome; Z86.16 Personal history of COVID-19; Z87.891 Personal history of nicotine dependence; Z90.49 Acquired absence of other specified parts of digestive tract; R94.31 Abnormal electrocardiogram [ECG] [EKG]
CPT/HCPCS: 93005; 99284; A9270